=== PATIENT | male | born 1940 | race Caucasian/White ===

== ENCOUNTER → 2017-03-14 | Day surgery (SDC) | payer MEDICARE, BC ==
[~2017-03-14] MED LIST: ASPI-110 PO; ATOR20TA15 PO; B-COTAB41; CITRTAB7 PO; EPINEPHrine HCL (1:1000) 1 MG/ML VIAL ONE; ESSE250T; FURO40TA PO; INFL1INJ52 IM; ISOS20TA PO; LISI-515 PO; METF500T4 PO; METH1TAB25; METO-489 PO; NIFE30TA61 PO; NIFE60TA58 PO; OMEG5CAP; OMEP20TA PO; PROPOFOL 200 MG/20 ML AMP IV ONE; SODIUM CHLORIDE 0.9% INJ 10 ML ONE; VITA100064 PO
--- NOTE | 2017-03-14 11:04 | GIPROC ---
[facility] [address] [facility], [id number] EGD PROCEDURE REPORT EXAM DATE: 03/14/2017 PATIENT NAME: Danis Lobato MR #: [id number] BIRTHDATE: 1940 ATTENDING: aTnia Montes MD ORDER #: [id number] [employer]: Nancy Holman RN STATUS: outpatient INDICATIONS: The patient is a 76 yr old male here for an EGD due to follow up of Rae's esophagus PROCEDURE PERFORMED: EGD w/ biopsy EGD w/ directed submucosal injection(s), any substance MEDICATIONS: None and Per Anesthesia. TOPICAL ANESTHETIC: CONSENT: The patient understands the risks and benefits of the procedure and understands that these risks include, but are not limited to: sedation, allergic reaction, infection, perforation and/or bleeding. Alternative means of evaluation and treatment include, among others: physical exam, x-rays, and/or surgical intervention. The patient elects to proceed with this endoscopic procedure. medical equipment was checked for proper function. Hand hygiene and appropriate measures for infection prevention was taken. After the risks, benefits and alternatives of the procedure were thoroughly explained, Informed consent was verified, confirmed and timeout was successfully executed by the treatment team. The patient was anesthetized with topical anesthesia and the EG-[id number] ([id number]) endoscope was introduced through the mouth and advanced to the second portion of the duodenum. Retroflexed views revealed a hiatal hernia The gastroscope was then slowly withdrawn and removed. ESOPHAGUS: There was LA Class B esophagitis noted. A biopsy was performed using cold forceps. Sample sent for histology. Submucosal injection of 1ml of epinephrine 1:1,000 was performed around the bleeding site with complete hemostasis achieved. STOMACH: There was erythematous moderate gastritis in the gastric antrum. A biopsy was performed using cold forceps. Sample sent for histology. DUODENUM: The duodenal mucosa appeared normal in the bulb and second portion of the duodenum. ADVERSE EVENTS: There were no complications. IMPRESSIONS: 1. There was LA Class B esophagitis noted; biopsy was performed 2. There was erythematous gastritis in the gastric antrum; biopsy was performed 3. Normal duodenal mucosa in the bulb and second portion of the duodenum 4. Retroflexed views revealed a hiatal hernia RECOMMENDATIONS: 1. Await biopsy results. Biopsy results will not be ready for 7-10 days. If you don't hear from us in two weeks, call our office for biopsy results. 2. Anti-reflux regimen 3. Continue PPI 4. Hold Aspirin 48 hours post procedure. Monitor for bleeding. if any bleeding go to the er PATIENT CONDITION: stable DISPOSITION: Home REPEAT EXAM: Return 2 years EGD pending biopsy results Tania Montes MD eSigned: Tania Montes MD 03/14/2017 11:04 AM cc: Tommy Michaels [facility] Leticia Guerin M.D. [facility] Magaly Olvera PATIENT NAME: Danis Lobtao MR#: [id number]
== END | disposition home or self-care (01) ==
LOC: ESDC 08:08
PROVIDERS: ATTEND Internal Medicine Gastroenterology
DX: K22.70 Barrett's esophagus without dysplasia (principal); K44.9 Diaphragmatic hernia without obstruction or gangrene; K20.9 Esophagitis, unspecified; K29.70 Gastritis, unspecified, without bleeding
CPT/HCPCS: 00740; 43236; 43239; 88305; 88312; J0171